=== PATIENT | male | born 1970 | race Two or more races ===

== ENCOUNTER 2024-03-19 09:58 | Outpatient (AMB) | payer MEDICARE, SELFPAY ==
--- NOTE | 2024-03-19 10:12 | A.OFFPC_ITS ---
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 ?? Prior PCP:? Family Medicine in [place] on [facility] Last office visit/CPE:? Close to a year Acute issue(s):? Stomach problems and has had colonoscopy <5 yrs ago at [facility] - inflammation in stomach. Also constipation & Hemorrhoids ?? PMHx:? Gastritis. Depression. Hep C - treated. L Eye injury and decreased vision SurgHx:? L knee surgery, Vasectomy FHx:? Mom: CAD, HTN. Dad: Lung Cancer. Aunt: DM SocHx: Quit cigs 2 yrs ago. EtOH: None. No drugs HPI Comments History of Present Illness Details Documentation assistance for Bimal Easton MD, was provided by Palmer Rai,? Offset Printing Operator on 03/19/2024 at 10:43 AM ALF. Fernando, Dr. Easton, have read, observed, and verified documentation. [facility] Medical History (Updated 03/19/24 @ 10:57 by Palmer Rai) History of hepatitis C Schizophrenia Bipolar 1 disorder Depression Anxiety Headache Acid reflux Back disorder Arthritis Family History (Updated 03/19/24 @ 10:29 by Len Gomez) Mother High blood pressure Father Cancer Social History (Updated 03/19/24 @ 10:18 by Len Gomez) Housing: Apartment Patient Tobacco Use Status: Former Tobacco user e-Cigarette/Vaping Use: Never Used Use of substances other than those prescribed or required for medical reasons: No service: No Current occupational status: unemployed Current occupational exposures/hazards: No Cognitive needs: No Hearing needs: No Vision needs: Yes Questionnaire PHQ-9 Over the last 2 weeks, how often have you been bothered by any of the following problems? 1. Little interest or pleasure in doing things: several days 2. Feeling down, depressed, or hopeless: several days 3. Trouble falling or staying asleep, or sleeping too much: several days 4. Feeling tired or having little energy: several days 5. Poor appetite or overeating: several days 6. Feeling bad about yourself - or that you are a failure or have let yourself or your family down: several days 7. Trouble concentrating on things, such as reading the newspaper or watching television: nearly every day 8. Moving or speaking so slowly that other people could have noticed. Or the opposite - being so fidgety or restless that you have been moving around a lot more than usual: several days 9. Thoughts that you would be better off or of hurting yourself in some way: not at all Total score: 10 Depression Screening Interpretation: Positive Depression Screening Done: Yes 35247 - PHQ-9 Billing: Yes Source: Developed by Drs. Rigo Smith, Ceci Arechiga, Gurvinder Dawson and colleagues, with an educational agustin from [employer]. Thrive Questionnaire Date Thrive assessed: 03/19/24 I am a: Patient What is your living situation today?: I have a place to live, but I am worried about losing it in the future Within the past 12 months, did the food you bought not last and you didn't have the money to get more?: Sometimes True Within the past 12 months, did you worry whether your food would run out before you got money to buy more?: Sometimes True Do you have trouble paying for medicines?: No Do you have trouble getting transportation to medical appointments?: No Do you have trouble paying your heating and electricity bill?: No Do you have trouble taking care of your child, family member or friend?: No Do you have trouble with day-to-day activities such as bathing, preparing meals, shopping, managing finances, etc.?: Yes Are you currently unemployed and looking for a job?: No Are you interested in more education?: No Please select the resources that you would like help with: None Currently or been in a relationship where the following occur: No concerns r eported THRIVE Score: 3 AUDIT C Alcohol Use Questionnaire (AUDIT-C) 1. How often do you have a drink containing alcohol?: Never 3. How often do you have six or more drinks on one occasion?: Never Total Score: 0 Score Reviewed/Action Taken: Yes ERIKA-7 AMB Questionnaire ERIKA-7 Date ERIKA - 7 assessed: 03/19/24 Feeling nervous, anxious, or on edge: 1 = Several days Not being able to stop or control worryin = Several days Worrying too much about different things: 1 = Several days Trouble relaxin = Nearly every day Being so restless that it is hard to sit still: 1 = Several days Becoming easily annoyed or irritable: 3 = Nearly every day Feeling afraid as if something awful might happen: 1 = Several days Total ERIKA-7 score (0-4 normal; 5-9 mild; 10-14 moderate; 15-21 severe): 11 Source: Developed by Drs. Rigo Smith, Ceci Arechiga, Gurvinder Dawson and colleagues, with an educational agustin from [employer]. ERIKA-7 Assessment Billing ERIKA-7 Assessment Tool: ERIKA-7 Assessment 69397 Review of Systems Const Denies chills, Denies fatigue, Denies fever(s), Denies headache(s) and Denies weakness ENT Denies dizziness and Denies headache(s) Card Denies chest pain, Denies lightheadedness, Denies dyspnea and Denies other (Palpitations) Resp Denies cough, Denies dyspnea, Denies wheezing and Denies other ( shortness of breath) GI Reports constipation Musc Denies numbness and Denies tingling Neuro Denies dizziness, Denies headache(s), Denies numbness, Denies tingling, Denies paresthesias and Denies weakness Psych Reports anxiety and Reports depression Endo Denies fatigue Aller/Immun Denies wheezing Physical exam (Primary Care) Vital Signs: Last Vital Signs Temp 97.6 F 03/19/24 10:20 Pulse 58 03/19/24 10:20 Resp 18 03/19/24 10:20 BP 110/70 03/19/24 10:20 Pulse Ox 96 03/19/24 10:20 Oxygen Delivery Method Room Air 03/19/24 10:20 BMI result Body Mass Index 37.3 Tobacco/Smoking Status: Tobacco use Status Tobacco use date assessed 03/19/24 03/19/24 10:24 Patient Tobacco Use Status Former Tobacco user 03/19/24 10:24 e-Cigarette/Vaping Use Never Used 03/19/24 10:24 PHQ-9: PHQ-9 Score PHQ-9: Total score 10 03/19/24 10:32 Depression Screening Interpretation: Positive Thrive Assessment: Date of Thrive Assessment Date Thrive assessed 03/19/24 03/19/24 10:24 Currently or been in a relationship where the following occur: No concerns reported Const General: no acute distress and well developed Nutritional Appearance: obese Orientation/consciousness: patient oriented x3 HENMT Head: Yes normocephalic and Yes atraumatic Eyes General: appearance normal, both eyes and all related structures Pupils: Equal, round and reactive pupils present EOM: EOMs intact bilaterally Resp Effort & Inspection: normal respiratory effort Auscultation: clear to auscultation bilaterally Cardio Rate: regular rate Rhythm: regular rhythm Heart sounds: S1 normal heart sound present, S2 normal heart sound present, no gallops, no murmurs and no rubs Neuro General: patient oriented x3 and gait normal Cranial nerves: Yes Equal, round and reactive pupils present Psych Affect: normal affect Assessment and Plan Assessment & Plan (1) Gastritis: Code(s): K29.70 - Gastritis, unspecified, without bleeding Plan: Patient?has?likely?gastritis?and?I?am?concerned?he?may?also?have?a?peptic?ulcer. Will?start?him?on?omeprazole?and?also?a?short?course?of?famotidine?at?bedtime Referring?him?julisa k?to?gastroenterology?at[facility]were?he?has?been?seen?before. Will?also?check?H?pylori?stool?antigen Advised?he?avoid?trigger?foods (2) Constipation: Code(s): K59.00 - Constipation, unspecified Plan: Increase?hydration (3) Depression with anxiety: Code(s): F41.8 - Other specified anxiety disorders Plan: Will?follow?at?next?visit. (4) Hemorrhoids: Code(s): K64.9 - Unspecified hemorrhoids Plan: As?above?keep?stools?soft-increase?hydration (5) Decreased vision of left eye: Code(s): H54.62 - Unqualified visual loss, left eye, normal vision right eye Plan: Patient?has?seen?registered nurse step down?in?the?past. Can?make?new?appointment?for?himself?if?needed. (6) Laboratory exam ordered as part of routine general medical examination: Code(s): Z00.00 - Encounter for general adult medical examination without abnormal findings Plan: Check?lab Orders: Orders Comprehensive [place]. Panel Fast Today Z00.00 - Encounter for general adult medi marleen examination without abnormal findings Microalbumin, Random (w Creat) Today I10 - Essential (primary) hypertension UA and rflx microscopic Today Z00.00 - Encounter for general adult medical examination without abnormal findings Lipid Panel Today Z00.00 - Encounter for general adult medical examination without abnormal findings Prostate Specific Antigen Scr Today Z12.5 - Encounter for screening for malignant neoplasm of prostate TSH reflex Free T4 Today Z00.00 - Encounter for general adult medical examination without abnormal findings Medications: New omeprazole 20 mg PO DAILY 30 days 30 caps 3RF famotidine 20 mg PO DAILY 14 days 14 tabs 0RF Coding Level of Care Code New Pt Level 3 (09079) Diagnoses Gastritis K29.70 Constipation K59.00 Depression with anxiety F41.8 Hemorrhoids K64.9 Decreased vision of left eye H54.62 Laboratory exam ordered as part of routine general medical examination Z00.00 Additional Codes ERIKA-7 Assessment Billing - ERIKA-7 Assessment Tool: ERIKA-7 Assessment 95280 ([id number])
[2024-03-19 10:20] VITALS: BP 110/70; PULSE 58; RESP 18; TEMP 36.4; O2SAT 96; BMI 37.3
== END 2024-03-19 11:04 | disposition home or self-care (01) ==
PROVIDERS: PCP Family Medicine; Visit Provider Family Medicine
DX: K29.70 Gastritis, unspecified, without bleeding (principal); K59.00 Constipation, unspecified; F41.8 Other specified anxiety disorders; K64.9 Unspecified hemorrhoids; H54.62 Unqualified visual loss, left eye, normal vision right eye
CPT/HCPCS: 99203

== ENCOUNTER 2024-03-24 07:34 | Outpatient (REF) | payer MEDICARE, SELFPAY ==
[2024-03-24 10:00] LABS: Appearance Urine Turbid; Color Urine Yellow; Glucose Urine UA Negative (Negative); Leukocyte Esterase Urine Trace (Negative); Nitrite Urine Negative (Negative); PH 5.5 (5.0-9.0); Specific Gravity - Urine 1.025 (1.005-1.025); UMIC TRIGGER UA YES; Urine Blood Negative (Negative); Urine Ketones Trace mg/dL (Negative); Urine Protein Negative (Neg-Trace)
[2024-03-24 10:03] LABS: Bacteria Urine None Seen (None Seen); Hyaline Casts Urine 0-2 /LPF (0-2); RBC Urine 0-2 /HPF (0-2); Squamous Epithelial Cell Urine 0-2 /HPF (0-2); WBC Urine 0-5 /HPF (0-5)
[2024-03-24 10:39] LABS: Alanine Aminotransferase 14 U/L (0-40); Albumin Level 4.4 g/dL (3.5-5.0); Alkaline Phosphatase 57 U/L (39-117); Anion Gap 11 (12-20); Aspartate Amino Transferase 18 U/L (5-37); Bilirubin Total 0.6 mg/dL (0.0-1.0); Blood Urea Nitrogen 13 mg/dL (9-16); Calcium 9.4 mg/dL (8.4-10.2); Carbon Dioxide 26 mmol/L (22-29); Chloride 107 mmol/L (96-108); Cholesterol 184 mg/dL (<200); Estimated Glomerular Filt Rate > 60; Glucose Fasting 108 mg/dL (60-99); HDL Cholesterol 31 mg/dL (>40); LDL Cholesterol Calculated 114 mg/dL (<100); Potassium 3.9 mmol/L (3.3-5.1); Sodium 140 mmol/L (135-145); Total Protein 7.4 g/dL (6.5-8.0); Triglycerides 195 mg/dL (<150)
[2024-03-24 10:53] LABS: HBS Num1 0.75 mIU/mL (0-7.99); HBsAGNum1 0.31 S/CO (0.00-0.99); Hepatitis B Core Antibody Nonreactive (Nonreactive); Hepatitis B Surface Antigen Negative (Negative); ~HepC Num1 15.41 S/CO (0.00-0.79); ~Hepatitis B Surface Antibody NONREACTIVE (Nonreactive); ~Hepatitis C Antibody Reactive (Nonreactive)
[2024-03-24 10:54] LABS: TSH reflex Free T4 3.28 uIU/mL (0.32-4.0)
[2024-03-24 11:43] LABS: Microalbum/Creatinine Ratio Ur 3.5 ug/mg cr (<30)
[2024-03-24 11:53] LABS: Prostate Specific Antigen Scr 0.88 ng/mL (<0.05-4.0)
== END 2024-03-24 07:35 | disposition home or self-care (01) ==
LOC: HO.WFDLDS 07:34
PROVIDERS: Visit Provider Family Medicine
DX: Z00.00 Encounter for general adult medical examination without abnormal findings (principal); Z12.5 Encounter for screening for malignant neoplasm of prostate; Z11.3 Encounter for screening for infections with a predominantly sexual mode of transmission; I10 Essential (primary) hypertension; K29.70 Gastritis, unspecified, without bleeding
CPT/HCPCS: 36415; 80053; 80061; 81001; 81003; 82043; 82570; 84153; 84443; 86704; 86706; 86803; 87338; 87340

== ENCOUNTER 2024-07-27 12:00 | Outpatient (AMB) | payer MEDICARE, SELFPAY ==
--- NOTE | 2024-07-27 12:03 | MHC.PC.OV ---
Vital Signs 07/27/24 12:07 Height 5 ft 8 in Weight 243 lb BMI 36.9 BP 120/80 Blood Pressure Location Lt brachial Position Sitting Respiration 16 Pulse 74 Pulse Source Pulse Oximeter Temp 97.8 F Temp Source Oral Pulse Oximetry (%) 97 Oxygen Delivery Method Room Air Intake Visit Reasons: MIGRAINE REFERRAL Intake Note: pt would like to be evaluated for migraines pt has been having headaches consistently for the past 2 months Allergies No Known Allergies Allergy (Verified 07/27/24 12:05) Tobacco use date assessed: 03/19/24 Dental Screening Dental Screen Date: 03/19/24 HPI MIGRAINE REFERRAL HPI Details 53 y/o male presents today with complaints of a migraine. Reports chronic headaches and has taken tylenol before in the past. [facility] Medical History (Updated 07/27/24 @ 12:27 by Bimal Easton MD) History of hepatitis C Schizophrenia Bipolar 1 disorder Depression Anxiety Headache Acid reflux Back disorder Arthritis Family History (Updated 03/19/24 @ 10:29 by GABRIEL Lincoln) Mother High blood pressure Father Cancer Social History (Updated 03/19/24 @ 10:18 by GABRIEL Lincoln) Housing: Apartment Patient Tobacco Use Status: Former Tobacco user e-Cigarette/Vaping Use: Never Used service: No Current occupational status: unemployed Current occupational exposures/hazards: No Cognitive needs: No Hearing needs: No Vision needs: Yes Questionnaire PHQ-9 Over the last 2 weeks, how often have you been bothered by any of the following problems? 1. Little interest or pleasure in doing things: more than half the days 2. Feeling down, depressed, or hopeless: nearly every day 3. Trouble falling or staying asleep, or sleeping too much: nearly every day 4. Feeling tired or having little energy: more than half the days 5. Poor appetite or overeating: several days 6. Feeling bad about yourself - or that you are a failure or have let yourself or your family down: several days 7. Trouble concentrating on things, such as reading the newspaper or watching television: more than half the days 8. Moving or speaking so slowly that other people could have noticed. Or the opposite - being so fidgety or restless that you have been moving around a lot more than usual: several days 9. Thoughts that you would be better off or of hurting yourself in some way: not at all Total score: 15 Source: Developed by Drs. Rigo Smith, Ceci Arechiga, Gurvinder Dawson and colleagues, with an educational agustin from [employer]. Thrive Questionnaire Date Thrive assessed: 03/19/24 I am a: Patient What is your living situation today?: I have a steady place to live Within the past 12 months, did the food you bought not last and you didn't have the money to get more?: Often true Within the past 12 months, did you worry whether your food would run out before you got money to buy more?: Often true Do you have trouble paying for medicines?: I choose not to answer this question Do you have trouble getting transportation to medical appointments?: No Do you have trouble paying your heating and electricity bill?: I choose not to answer this question Do you have trouble taking care of your child, family member or friend?: I choose not to answer this question Do you have trouble with day-to-day activities such as bathing, preparing meals, shopping, managing finances, etc.?: Yes Are you currently unemployed and looking for a job?: I choose not to answer this question Are you interested in more education?: I choose not to answer this question Please select the resources that you would like help with: Food Currently or been in a relationship where the following occur: No concerns reported THRIVE Score: 2 AUDIT C Alcohol Use Questionnaire (AUDIT-C) 1. How often do you have a drink containing alcohol?: Never Total Score: 0 ERIKA-7 AMB Questionnaire ERIKA-7 Date ERIKA - 7 assessed: 03/19/24 Feeling nervous, anxious, or on edge: 2 = More than half the days Not being able to stop or control worryin = More than half the days Worrying too much about different things: 2 = More than half the days Trouble relaxin = More than half the days Being so restless that it is hard to sit still: 2 = More than half the days Becoming easily annoyed or irritable: 1 = Several days Feeling afraid as if something awful might happen: 1 = Several days Total ERIKA-7 score (0-4 normal; 5-9 mild; 10-14 moderate; 15-21 severe): 12 Source: Developed by Drs. Rigo Smith, Ceci Arechiga, Gurvinder Dawson and colleagues, with an educational agustin from [employer]. Review of Systems Const Denies fatigue and Reports headache(s) ENT Reports headache(s) Card Denies dyspnea Resp Denies cough, Denies dyspnea, Denies wheezing and Denies other (shortness of breath) Musc Denies numbness and Denies tingling Neuro Reports headache(s), Denies numbness and Denies tingling Psych Denies anxiety and Denies depression Endo Denies fatigue Aller/Immun Denies wheezing Physical exam (Primary Care) Vital Signs: Last Vital Signs Temp 97.8 F 07/27/24 12:07 Pulse 74 07/27/24 12:07 Resp 16 07/27/24 12:07 BP 120/80 07/27/24 12:07 Pulse Ox 97 07/27/24 12:07 Oxygen Delivery Method Room Air 07/27/24 12:07 BMI result Body Mass Index 36.9 Tobacco/Smoking Status: Tobacco use Status Tobacco use date assessed 03/19/24 07/27/24 12:10 Patient Tobacco Use Status Former Tobacco user 07/27/24 12:10 e-Cigarette/Vaping Use Never Used 07/27/24 12:10 PHQ-9: PHQ-9 Score PHQ-9: Total score 15 07/27/24 12:13 Thrive Assessment: Date of Thrive Assessment Date Thrive assessed 03/19/24 07/27/24 12:10 Currently or been in a relationship where the following occur: No concerns reported Const General: well developed; No acute distress Nutritional Appearance: well nourished Orientation/consciousness: patient oriented x3 [facility] Head: Yes normocephalic and Yes atraumatic Eyes General: appearance normal, both eyes and all related structures Pupils: Equal, round and reactive pupils present EOM: EOMs intact bilaterally Resp Effort & Inspection: normal respiratory effort Neuro General: patient oriented x3 and gait normal Cranial nerves: Yes Equal, round and reactive pupils present Psych Affect: normal affect Coding Level of Care Code Est Pt Level 3 (15373) Diagnoses Migraine G43.909 Headache R51.9 Assessment & Plan Assessment & Plan (1) Migraine: Code(s): G43.909 - Migraine, unspecified, not intractable, without status migrainosus Category: Medical (2) Headache: Code(s): R51.9 - Headache, unspecified Category: Medical Plan Intractable?migraine Neuro?exam?within?limits Hydrate?well?and?try?Imitrex Will?refer?to?Neurology Will?follow-up?in?a?month?sure?has?an?appointment?and?follow-up?labs.??Will?see?how?medication?is?working?and?he?may?need?a?medication?prevention?well?abortive?medication?I?am?sending?today. Orders: Orders Erythrocyte Sedimentation Rate Today R51.9 - Headache, unspecified CRP High Sensitivity Today R51.9 - Headache, unspecified Complete Blood Count Auto Diff Today R51.9 - Headache, unspecified, Z00.00 - Encounter for general adult medical examination without abnormal findings Comprehensive Met. Panel Today R51.9 - Headache, unspecified Hepatitis C Viral Load Today Z86.19 - Personal history of other infectious and parasitic diseases Referrals Neurology Referral G43.909 - Migraine, unspecified, not intractable, without status migrainosus Medications: New sumatriptan succinate take 1 tab at onset of headache; if no relief may repeat 1 tab after at least 2 hrs; max = 4 tabs/24 hr orally PRN; 30 days 12 tabs 1RF migraine headache
[2024-07-27 12:07] VITALS: BP 120/80; PULSE 74; RESP 16; TEMP 36.6; O2SAT 97; BMI 36.9
== END 2024-07-27 12:28 | disposition home or self-care (01) ==
PROVIDERS: PCP Family Medicine; Visit Provider Family Medicine
DX: G43.909 Migraine, unspecified, not intractable, without status migrainosus (principal); R51.9 Headache, unspecified

== ENCOUNTER → 2024-07-27 12:00 | Outpatient (BNVA) | payer MEDICARE, SELFPAY | PROVIDERS: PCP Family Medicine; Visit Provider Family Medicine | DX: G43.909 Migraine, unspecified, not intractable, without status migrainosus (principal); Z86.19 Personal history of other infectious and parasitic diseases | CPT/HCPCS: 96127; 99212 ==

== ENCOUNTER 2024-07-27 12:34 | Outpatient (REF) | payer MEDICARE, SELFPAY ==
[2024-07-27 14:22] LABS: MANUAL DIFF FLAG NO
[2024-07-27 14:46] LABS: Basophils Percent Auto 0.6 % (0-2); Eosinophils Absolute Auto 0.1 X10*3/uL (0.0-0.4); Eosinophils Percent Auto 0.8 % (0-4); Hematocrit 47.7 % (42.0-52.0); Hemoglobin 15.9 g/dl (14.0-18.0); Imm Gran Abs Auto 0.02 X10*3/uL (0.00-0.03); Imm Gran Pct Auto 0.3 % (0.0-0.4); Lymphocytes Absolute Auto 1.2 X10*3/uL (1.2-4.9); Lymphocytes Percent Auto 18.3 % (20-40); Mean Corpuscular HGB Conc 33.3 g/dl (31.0-36.0); Mean Corpuscular Hemoglobin 28.2 pg (27.0-33.0); Mean Corpuscular Volume 84.7 fL (80.0-98.0); Mean Platelet Volume 10.8 fL (9.4-12.4); Monocytes Absolute Auto 0.3 X10*3/uL (0.1-1.2); Monocytes Percent Auto 5.3 % (2-11); Neutrophils Absolute Auto 4.8 x10*3/uL (2.0-8.3); Neutrophils Percent Auto 74.7 % (45-73); Platelet Count 189 X10*3/uL (160-400); Red Blood Count 5.63 X10*6/uL (4.60-5.80); Red Cell Distribution Width 14.6 % (11.0-16.0); White Blood Count 6.5 X10*3/uL (4.8-10.8)
[2024-07-27 15:25] LABS: Erythrocyte Sedimentation Rate 5 MM/HR (0-15)
[2024-07-27 15:26] LABS: Alanine Aminotransferase 19 U/L (0-40); Albumin Level 4.6 g/dL (3.5-5.0); Anion Gap 12 (12-20); Aspartate Amino Transferase 23 U/L (5-37); Bilirubin Total 0.4 mg/dL (0.0-1.0); Blood Urea Nitrogen 13 mg/dL (9-16); Calcium 9.4 mg/dL (8.4-10.2); Carbon Dioxide 23 mmol/L (22-29); Chloride 108 mmol/L (96-108); Estimated Glomerular Filt Rate > 60; Glucose Random 99 mg/dL (60-115); Potassium 4.4 mmol/L (3.3-5.1); Sodium 139 mmol/L (135-145); Total Protein 7.7 g/dL (6.5-8.0)
[2024-07-27 15:59] LABS: Alkaline Phosphatase 54 U/L (39-117)
[2024-07-29 11:47] LABS: CRP High Sensitivity 9.6 mg/L
[2024-07-29 17:59] LABS: HCV Log PCR <1.18 NOT DETECTED Log IU/mL (NOT DETECTED); HepC Viral Load <15 NOT DETECTED IU/mL (NOT DETECTED)
== END 2024-07-27 12:35 | disposition home or self-care (01) ==
LOC: HO.WFDLDS 12:34
PROVIDERS: Visit Provider Family Medicine
DX: Z00.00 Encounter for general adult medical examination without abnormal findings (principal); Z86.19 Personal history of other infectious and parasitic diseases; G43.909 Migraine, unspecified, not intractable, without status migrainosus
CPT/HCPCS: 36415; 80053; 84443; 85025; 85652; 86141; 87522

== ENCOUNTER 2024-08-03 12:31 | Outpatient (AMB) | payer MEDICARE, SELFPAY ==
[2024-08-03 12:52] VITALS: BMI 36.9
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
== END 2024-08-03 13:31 | disposition home or self-care (01) ==
PROVIDERS: PCP Family Medicine; Visit Provider Psychiatry & Neurology Neurology
DX: G43.E19 Chronic migraine with aura, intractable, without status migrainosus (principal); M54.2 Cervicalgia; R06.83 Snoring; G47.10 Hypersomnia, unspecified
CPT/HCPCS: 99204; G2211

== ENCOUNTER → 2024-08-03 12:31 | Outpatient (BNVA) | payer MEDICARE, SELFPAY | PROVIDERS: PCP Family Medicine; Visit Provider Psychiatry & Neurology Neurology | DX: G43.E19 Chronic migraine with aura, intractable, without status migrainosus (principal); G47.10 Hypersomnia, unspecified; M54.2 Cervicalgia; R06.83 Snoring | CPT/HCPCS: 99202 ==

== ENCOUNTER 2024-09-06 14:37 | Outpatient (AMB) | payer MEDICARE, SELFPAY ==
--- NOTE | 2024-09-06 14:44 | MHC.PC.OV ---
Vital Signs 09/06/24 14:45 Height 5 ft 8 in Weight 247 lb BMI 37.6 BP 116/72 Blood Pressure Location Rt brachial Position Sitting Pulse 77 Pulse Source Pulse Oximeter Pulse Oximetry (%) 95 Oxygen Delivery Method Room Air Intake Visit Reasons: f/u chronic headaches Intake Note: Follow up headaches. Developmental Writing Instructor Required: No Allergies No Known Allergies Allergy (Verified 09/06/24 14:45) Tobacco use date assessed: 03/19/24 Dental Screening Dental Screen Date: 03/19/24 HPI f/u chronic headaches HPI Details 53 y/o male presents to f/u intractable migraines. Had given pt Imitrex to try to abort headaches. Had seenNeurology 08/03/24. Trialing him oncyclobenzaprine and recommended PT for his neck. He notes imitrex has been helping with his headaches. Reports L knee pain. [facility] Medical History (Updated 09/06/24 @ 15:22 by Palmer Rai) Cervicalgia Chronic migraine with aura Headache around the eyes Hypersomnia Snoring Cervicalgia History of hepatitis C Schizophrenia Bipolar 1 disorder Depression Anxiety Headache Acid reflux Back disorder Arthritis Family History Mother High blood pressure Father Cancer Social History Housing: Apartment Patient Tobacco Use Status: Former Tobacco user e-Cigarette/Vaping Use: Never Used service: No Current occupational status: unemployed Current occupational exposures/hazards: No Cognitive needs: No Hearing needs: No Vision needs: Yes Questionnaire PHQ-9 Over the last 2 weeks, how often have you been bothered by any of the following problems? 1. Little interest or pleasure in doing things: several days 2. Feeling down, depressed, or hopeless: several days 3. Trouble falling or staying asleep, or sleeping too much: several days 4. Feeling tired or having little energy: several days 5. Poor appetite or overeating: several days 6. Feeling bad about yourself - or that you are a failure or have let yourself or your family down: not at all 7. Trouble concentrating on things, such as reading the newspaper or watching television: several days 8. Moving or speaking so slowly that other people could have noticed. Or the opposite - being so fidgety or restless that you have been moving around a lot more than usual: several days 9. Thoughts that you would be better off or of hurting yourself in some way: not at all Total score: 7 Source: Developed by Drs. Rigo Smith, Ceci Arechiga, Gurvinder Dawson and colleagues, with an educational agustin from [employer]. Thrive Questionnaire Date Thrive assessed: 07/27/24 I am a: Patient What is your living situation today?: I choose not to answer this question Within the past 12 months, did the food you bought not last and you didn't have the money to get more?: I choose not to answer this question Within the past 12 months, did you worry whether your food would run out before you got money to buy more?: I choose not to answer this question Do you have trouble paying for medicines?: I choose not to answer this question Do you have trouble getting transportation to medical appointments?: I choose not to answer this question Do you have trouble paying your heating and electricity bill?: I choose not to answer this question Do you have trouble taking care of your child, family member or friend?: I choose not to answer this question Do you have trouble with day-to-day activities such as bathing, preparing meals, shopping, managing finances, etc.?: I choose not to answer this question Are you currently unemployed and looking for a job?: I choose not to answer this question Are you interested in more education?: I choose not to answer this question Please select the resources that you would like help with: Housing/Residential Currently or been in a relationship where the following occur: I choose not to answer THRIVE Score: 0 AUDIT C Alcohol Use Questionnaire (AUDIT-C) 1. How often do you have a drink containing alcohol?: Never Total Score: 0 ERIKA-7 AMB Questionnaire ERIKA-7 Date ERIKA - 7 assessed: 03/19/24 Feeling nervous, anxious, or on edge: 2 = More than half the days Not being able to stop or control worryin = Several days Worrying too much about different things: 1 = Several days Trouble relaxin = Several days Being so restless that it is hard to sit still: 1 = Several days Becoming easily annoyed or irritable: 1 = Several days Feeling afraid as if something awful might happen: 1 = Several days Total ERIKA-7 score (0-4 normal; 5-9 mild; 10-14 moderate; 15-21 severe): 8 Source: Developed by Drs. Rigo Smith, Ceci Arechiga, Gurvinder Dawson and colleagues, with an educational agustin from [employer]. Review of Systems Const Denies chills, Denies fatigue, Denies fever(s), Denies headache(s) and Denies weakness ENT Denies dizziness and Denies headache(s) Card Denies dyspnea Resp Denies cough, Denies dyspnea, Denies wheezing and Denies other (shortness of breath) Musc Denies numbness and Denies tingling Neuro Denies dizziness, Denies headache(s), Denies numbness, Denies tingling and Denies weakness Psych Denies anxiety and Denies depression Endo Denies fatigue Aller/Immun Denies wheezing Physical exam (Primary Care) Vital Signs: Last Vital Signs Pulse 77 09/06/24 14:45 BP 116/72 09/06/24 14:45 Pulse Ox 95 09/06/24 14:45 Oxygen Delivery Method Room Air 09/06/24 14:45 BMI result Body Mass Index 37.6 Tobacco/Smoking Status: Tobacco use Status Tobacco use date assessed 03/19/24 09/06/24 14:46 Patient Tobacco Use Status Former Tobacco user 09/06/24 14:46 e-Cigarette/Vaping Use Never Used 09/06/24 14:46 PHQ-9: PHQ-9 Score PHQ-9: Total score 7 09/06/24 15:14 Thrive Assessment: Date of Thrive Assessment Date Thrive assessed 07/27/24 09/06/24 14:46 Currently or been in a relationship where the following occur: I choose not to answer Const General: well developed; No acute distress Nutritional Appearance: well nourished Orientation/consciousness: patient oriented x3 HENMT Head: Yes normocephalic and Yes atraumatic Eyes General: appearance normal, both eyes and all related structures Pupils: Equal, round and reactive pupils present EOM: EOMs intact bilaterally Resp Effort & Inspection: normal respiratory effort Neuro General: patient oriented x3 and gait normal Cranial nerves: Yes Equal, round and reactive pupils present Psych Affect: normal affect Coding Level of Care Code Est Pt Level 4 (04466) Diagnoses Intractable chronic migraine with aura and without status migrainosus G43.E19 Intractability: intractable Status migrainosus presence: without status migrainosus Cervicalgia M54.2 Left knee pain M25.562 Assessment & Plan Assessment & Plan (1) Chronic migraine with aura: Comment: paola triggered by neck tightness Code(s): G43.E09 - Chronic migraine with aura, not intractable, without status migrainosus Category: Medical Qualifiers: Intractability: intractable Status migrainosus presence: without status migrainosus Qualified Code(s): G43.E19 - Chronic migraine with aura, intractable, without status migrainosus Plan: Chronic?migraines Sumatriptan?did?help. Also?has?an?appointment?with?sleep?medicine?and?will?be?starting?physical?therapy?soon. Was?given?cyclobenzaprine?and?noted?that?it?was?making?him?still?feel?drowsy?in?the?morning.??He?has?been?taking?the?medication?around?11?and?I?told?him?take?it?at?8?or?9PM.??Can?also?read?this?half?if?still?making?feel?drowsy. Follow-up?with?Neurology?as?recommended (2) Cervicalgia: Code(s): M54.2 - Cervicalgia Category: Medical Plan: As?above Start?physical?therapy?and?try?cyclobenzaprine (3) Left knee pain: Code(s): M25.562 - Pain in left knee Category: Medical Plan: Left?knee?pain?and?history?of?internal?derangement?with?surgery. Can?use?topicals?and?ice/heat Use?cane?if?needed Will?renew?his?he?get?placard.? He?will?get?his?paperwork Medications: Refilled cyclobenzaprine 10 mg PO BEDTIME 30 tabs 1RF sumatriptan succinate take 1 tab at onset of headache; if no relief may repeat 1 tab after at least 2 hrs; max = 4 tabs/24 hr orally PRN; 9 tabs 2RF migraine headache 30 days
[2024-09-06 14:45] VITALS: BP 116/72; PULSE 77; O2SAT 95; BMI 37.6
== END 2024-09-06 16:45 | disposition home or self-care (01) ==
PROVIDERS: PCP Family Medicine; Visit Provider Family Medicine
DX: G43.E19 Chronic migraine with aura, intractable, without status migrainosus (principal); M54.2 Cervicalgia; M25.562 Pain in left knee

== ENCOUNTER → 2024-09-06 14:37 | Outpatient (BNVA) | payer MEDICARE, MEDICAID, SELFPAY | PROVIDERS: PCP Family Medicine; Visit Provider Family Medicine | DX: G43.E19 Chronic migraine with aura, intractable, without status migrainosus (principal); M54.2 Cervicalgia; M25.562 Pain in left knee | CPT/HCPCS: 99212 ==

== ENCOUNTER 2024-09-20 13:48 | Outpatient (AMB) | payer MEDICARE, MEDICAID, SELFPAY ==
--- NOTE | 2024-09-20 13:56 | A.OFFPC_ITS ---
Vital Signs 09/20/24 14:02 Height 5 ft 8 in Weight 247 lb BMI 37.6 BP 130/60 Blood Pressure Location Rt brachial Position Sitting Respiration 14 Pulse 70 Pulse Source Pulse Oximeter Temp 98.1 F Temp Source Oral Pulse Oximetry (%) 96 Oxygen Delivery Method Room Air Intake Visit Reasons: cpe Intake Note: cpe Allergies No Known Allergies Allergy (Verified 09/20/24 13:58) Medication List - Last Reconciled 09/23/24 by Raisa Sierra MD celecoxib (Celebrex) 200 mg PO BID PRN cyclobenzaprine 10 mg PO BEDTIME omeprazole 20 mg PO DAILY 30 days sumatriptan succinate take 1 tab at onset of headache; if no relief may repeat 1 tab after at least 2 hrs; max = 4 tabs/24 hr orally PRN; 30 days Tobacco use date assessed: 09/20/24 Dental Screening Dental Screen Date: 09/20/24 Did you have a dental visit in the last 12 months?: Yes Did you have a dental problem in the last 6 months where you did not have access to dental care?: No Was dental information given to patient?: No HPI HPI Comments History of Present Illness Details 53 y/o male with past medical history of migraine, schizophrenia, depression, OA, presenting for physical exam Neurology: Saw end of July. He notes imitrex has been helping with his headaches. He has a sleep study ordered-says this is scheduled Reports L knee pain-seeing [facility]. Neck pain. On flexeril. Continues PT. CRP was elevated with last labs CV: Hyperlipidemia. elevated crp. no chest pain or dyspnea BH: Notes stable on current medications ROS see HPI PHYSICAL EXAM: GENERAL: Alert and oriented x 3. NAD EYES: EOMI. Anicteric. HENT: Moist mucous membranes. No scleral icterus. No cervical lymphadenopathy. LUNGS: Clear to auscultation bilaterally. CARDIOVASCULAR: Regular rate and rhythm. No murmur. No JVD. ABDOMEN: Soft, non-tender +bs EXTREMITIES: No edema. Non-tender. SKIN: No rashes or lesions. Warm. NEUROLOGIC: No focal neurological deficits. CN II-XII grossly intact PSYCHIATRIC: Cooperative. Appropriate mood and affect [facility] Medical History Cervicalgia Chronic migraine with aura Headache around the eyes Hypersomnia Snoring Cervicalgia History of hepatitis C Schizophrenia Bipolar 1 disorder Depression Anxiety Headache Acid reflux Back disorder Arthritis Family History Mother High blood pressure Father Cancer Social History Housing: Apartment Patient Tobacco Use Status: Former Tobacco user e-Cigarette/Vaping Use: Never Used service: No Current occupational status: unemployed Current occupational exposures/hazards: No Cognitive needs: No Hearing needs: No Vision needs: Yes Questionnaire PHQ-9 Over the last 2 weeks, how often have you been bothered by any of the following problems? 1. Little interest or pleasure in doing things: several days 2. Feeling down, depressed, or hopeless: several days 3. Trouble falling or staying asleep, or sleeping too much: several days 4. Feeling tired or having little energy: several days 5. Poor appetite or overeating: not at all 6. Feeling bad about yourself - or that you are a failure or have let yourself or your family down: several days 7. Trouble concentrating on things, such as reading the newspaper or watching television: several days 8. Moving or speaking so slowly that other people could have noticed. Or the opposite - being so fidgety or restless that you have been moving around a lot more than usual: several days 9. Thoughts that you would be better off or of hurting yourself in some way: not at all Total score: 7 Depression Screening Interpretation: Positive Depression Screening Follow-up: In treatment Depression Screening Done: Yes 75969 - PHQ-9 Billing: Yes Source: Developed by Drs. Rigo Smith, Ceci Arechiga, Gurvinder Dawson and colleagues, with an educational agustin from [employer]. Thrive Questionnaire Date Thrive assessed: 09/20/24 I am a: Patient What is your living situation today?: I choose not to answer this question Within the past 12 months, did the food you bought not last and you didn't have the money to get more?: I choose not to answer this question Within the past 12 months, did you worry whether your food would run out before you got money to buy more?: I choose not to answer this question Do you have trouble paying for medicines?: I choose not to answer this question Do you have trouble getting transportation to medical appointments?: I choose not to answer this question Do you have trouble paying your heating and electricity bill?: I choose not to answer this question Do you have trouble taking care of your child, family member or friend?: I choose not to answer this question Do you have trouble with day-to-day activities such as bathing, preparing meals, shopping, managing finances, etc.?: I choose not to answer this question Are you currently unemployed and looking for a job?: I choose not to answer this question Are you interested in more education?: I choose not to answer this question Please select the resources that you would like help with: Housing/Assisted Currently or been in a relationship where the following occur: I choose not to answer THRIVE Score: 0 ERIKA-7 AMB Questionnaire ERIKA-7 Date ERIKA - 7 assessed: 09/20/24 Feeling nervous, anxious, or on edge: 1 = Several days Not being able to stop or control worryin = Several days Worrying too much about different things: 1 = Several days Trouble relaxin = Several days Being so restless that it is hard to sit still: 1 = Several days Becoming easily annoyed or irritable: 1 = Several days Feeling afraid as if something awful might happen: 1 = Several days Total ERIKA-7 score (0-4 normal; 5-9 mild; 10-14 moderate; 15-21 severe): 7 Source: Developed by Drs. Rigo Smith, Ceci Arechiga, Gurvinder Dawson and colleagues, with an educational agustin from [employer]. ERIKA-7 Assessment Billing ERIKA-7 Assessment Tool: ERIKA-7 Assessment 09842 Physical exam (Primary Care) Vital Signs: Last Vital Signs Temp 98.1 F 09/20/24 14:02 Pulse 70 09/20/24 14:02 Resp 14 09/20/24 14:02 BP 130/60 09/20/24 14:02 Pulse Ox 96 09/20/24 14:02 Oxygen Delivery Method Room Air 09/20/24 14:02 BMI result Body Mass Index 37.6 Tobacco/Smoking Status: Tobacco use Status Tobacco use date assessed 09/20/24 09/20/24 14:05 Patient Tobacco Use Status Former Tobacco user 02/17/25 13:58 e-Cigarette/Vaping Use Never Used 09/20/24 13:58 PHQ-9: PHQ-9 Score PHQ-9: Total score 7 09/23/24 10:18 Depression Screening Interpretation: Positive Depression Screening Follow-up: In treatment Thrive Assessment: Date of Thrive Assessment Date Thrive assessed 09/20/24 09/20/24 14:05 Currently or been in a relationship where the following occur: [facility] Coding Level of Care Code Est Pt Prev Care 40-64y(23757) Diagnoses Physical exam Z00.00 Polyarthralgia M25.50 Additional Codes ERIKA-7 Assessment Billing - ERIKA-7 Assessment Tool: ERIKA-7 Assessment 04029 ([id number]) PHQ-9 - 58551 - PHQ-9 Billing: Yes ([id number]) Assessment & Plan Assessment & Plan (1) Physical exam: Code(s): Z00.00 - Encounter for general adult medical examination without abnormal findings Category: Medical Plan: 53 y/o for physical exam. Chronic medical conditions, interval history reviewed. Medications reconciled. Preventive measures for age discussed. (2) Polyarthralgia: Code(s): M25.50 - Pain in unspecified joint Category: Medical Plan: Labs ordered. Orders: Orders Rheumatoid Factor 09/20/24 M25.50 - Pain in unspecified joint Erythrocyte Sedimentation Rate 09/20/24 M25.50 - Pain in unspecified joint Lyme IgG/IgM w/reflex to WB 09/20/24 M25.50 - Pain in unspecified joint Referrals Pain Management Referral M54.2 - Cervicalgia, M54.6 - Pain in thoracic spine Medications: New celecoxib (Celebrex) 200 mg PO BID PRN 180 caps 3RF pain
[2024-09-20 14:02] VITALS: BP 130/60; PULSE 70; RESP 14; TEMP 36.7; O2SAT 96; BMI 37.6
== END 2024-09-20 14:44 | disposition home or self-care (01) ==
PROVIDERS: PCP Family Medicine; Visit Provider Internal Medicine
DX: Z00.00 Encounter for general adult medical examination without abnormal findings (principal); M25.50 Pain in unspecified joint

== ENCOUNTER → 2024-09-20 13:48 | Outpatient (BNVA) | payer MEDICARE, MEDICAID, SELFPAY | PROVIDERS: PCP Family Medicine; Visit Provider Internal Medicine | DX: Z00.00 Encounter for general adult medical examination without abnormal findings (principal); M25.50 Pain in unspecified joint; M54.2 Cervicalgia; M54.6 Pain in thoracic spine | CPT/HCPCS: 36415; 85652; 86431; 86618; 96127; 99396 ==

== ENCOUNTER 2024-09-20 14:51 | Outpatient (REF) | payer MEDICARE, MEDICAID, SELFPAY ==
[2024-09-20 17:25] LABS: Erythrocyte Sedimentation Rate 3 MM/HR (0-15)
[2024-09-20 17:48] LABS: Rheumatoid Factor < 13.0 IU/mL (<15.0)
[2024-09-21 09:03] LABS: Lyme Abs Screen <0.90 index
== END 2024-09-20 14:52 | disposition home or self-care (01) ==
LOC: HO.WFDLDS 14:51
PROVIDERS: Visit Provider Internal Medicine
DX: Z13.89 Encounter for screening for other disorder (principal)
CPT/HCPCS: 36415; 85652; 86431; 86617; 86618

== ENCOUNTER 2024-09-26 14:16 | Outpatient (REF) | payer MEDICARE, MEDICAID, SELFPAY | END 2024-09-26 14:17 | disposition home or self-care (01) | LOC: HO.MRI 14:16 | PROVIDERS: PCP Family Medicine; Visit Provider Psychiatry & Neurology Neurology | DX: Z13.89 Encounter for screening for other disorder (principal) ==

== ENCOUNTER → 2024-10-06 10:05 | Outpatient (REF) | payer MEDICARE, MEDICAID, SELFPAY | LOC: HO.SL 10:05 | PROVIDERS: PCP Family Medicine; Visit Provider Psychiatry & Neurology Neurology | DX: R06.83 Snoring (principal); G47.10 Hypersomnia, unspecified | CPT/HCPCS: 95806 ==

== ENCOUNTER → 2024-10-06 10:30 | Outpatient (BNV) | payer MEDICARE, MEDICAID, SELFPAY | PROVIDERS: PCP Family Medicine; Visit Provider Psychiatry & Neurology Neurology | DX: G47.33 Obstructive sleep apnea (adult) (pediatric) (principal) | CPT/HCPCS: 95806 ==

== ENCOUNTER 2024-10-08 14:49 | Outpatient (AMB) | payer MEDICARE, MEDICAID, SELFPAY ==
[2024-10-08 14:54] VITALS: BP 120/78; PULSE 73; O2SAT 95; BMI 36.6
--- NOTE | 2024-10-08 14:54 | A.OFFVIS_ITS ---
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 He is having migraines 5x a week around 5 pm, 6-7 severity. The headaches were pulsating pounding bitemporal pain L>R, radiating from occipital to temporal, with eye pressure , photophobia, phonophobia, nausea, vomiting , visual aura , some dizziness etc. The pain but lasts 2 hours but migraines abort with Sumatriptan 50mg PO. He drives with shades on and wants to know if he can tint the windows of his car. 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 He has cervicagia when rotating his head to the left > more than the right. He was unable to complete his MRI d/t claustrophobia. He is not a smoker, and drinks occasionally. [facility] Medical History Cervicalgia Chronic migraine with aura Headache around the eyes Hypersomnia Snoring Cervicalgia History of hepatitis C Schizophrenia Bipolar 1 disorder Depression Anxiety Headache Acid reflux Back disorder Arthritis Family History Mother High blood pressure Father Cancer Social History Housing: Apartment Patient Tobacco Use Status: Former Tobacco user e-Cigarette/Vaping Use: Never Used service: No Current occupational status: unemployed Current occupational exposures/hazards: No Cognitive needs: No Hearing needs: No Vision needs: Yes Physical Exam Vital Signs: Last Vital Signs Pulse 73 10/08/24 14:54 BP 120/78 10/08/24 14:54 Pulse Ox 95 10/08/24 14:54 Oxygen Delivery Method Room Air 10/08/24 14:54 BMI result Body Mass Index 36.6 Const General: cooperative and comfortable Nutritional Appearance: obese Orientation/consciousness: patient oriented x3 Eyes Pupils: Equal, round and reactive pupils present Neuro Other: mild head tremors severe restricted range of motion of neck with tightness and tenderness in lateral and posterior cervical muscles. General: patient oriented x3, gait normal, tone normal, moves all extremities and no focal motor deficits Cranial nerves: Yes Facial sensation intact/muscles of mastication intact, Yes Equal, round and reactive pupils present, Yes Bilaterally intact EOM present, Yes Nystagmus not present, Yes Normal facial strength present, Yes Midline tongue present, Yes Symmetric palate elevation present and Yes Ability to bilaterally elevate shoulders present Cognition (Neuro): normal cognition Gait exam (Neuro): Normal gait present Motor exam (neuro): 5/5 motor strength present throughout and Normal motor muscle tone present throughout Deep tendon reflexes (DTR's): Right triceps reflex intensity grade: 1+, Left triceps reflex intensity grade: 1+, Rt Biceps (C5, C6): 1+, Left biceps reflex intensity grade: 1+, Right brachioradialis reflex intensity grade: 1+, Left brachioradialis reflex intensity grade: 1+, Right patellar reflex intensity grade: 1+ and Left patellar reflex intensity grade: 1+ Coordination: [id number] test normal Results Reviewed Results Reviewed: MRI unable d/t claustrophobia, will order a head CT Assessment & Plan Assessment & Plan (1) Headache around the eyes: Code(s): R51.9 - Headache, unspecified Category: Medical (2) Migraine: Code(s): G43.909 - Migraine, unspecified, not intractable, without status migrainosus Category: Medical Qualifiers: Migraine type: unspecified Status migrainosus presence: without status migrainosus Intractability: intractable Qualified Code(s): G43.919 - Migraine, unspecified, intractable, without status migrainosus (3) Chronic migraine with aura: Comment: kushley triggered by neck tightness Code(s): G43.E09 - Chronic migraine with aura, not intractable, without status migrainosus Category: Medical Qualifiers: Status migrainosus presence: without status migrainosus Intractability: intractable Qualified Code(s): G43.E19 - Chronic migraine with aura, intractable, without status migrainosus (4) Cervicalgia: Code(s): M54.2 - Cervicalgia Category: Medical (5) Snoring: Code(s): R06.83 - Snoring Category: Medical (6) Hypersomnia: Code(s): G47.10 - Hypersomnia, unspecified Category: Medical Plan Continue sumatriptan 50mg as needed with onset of migraines, take one pill and if it doesn't go away take one more pill 2 hours later. Cervicalgia continue with cyclobenzaprine 5mg as needed at bedtime Start Topiramate 50mg PO at night daily for chronic migraines. Continue PT for neck - myofascial release MRI not able to tolerate due to claustrophobic will do a CT scan of the head. sleep study to r/o sleep apnea is still pending/ snoring - nose strips and mouth gaurd may be helpful Consider in future: Counseled to f/u with psychiatrist for his mood disorder. Botox in future Patient requests tinting for car due to glare and headaches- forms from [employer] Orders: Orders CT head/brain wo IV con Today M54.2 - Cervicalgia, R51.9 - Headache, unspecified Medications: New topiramate take one tablet daily at night for migraines. 50 mg PO BID 30 days 30 tabs 1RF migraines MDD 50mg G43.909 - Migraine, unspecified, not intractable, without status migrainosus, R51.9 - Headache, unspecified Changed From cyclobenzaprine 10 mg PO BEDTIME 30 tabs 1RF M54.2 - Cervicalgia To cyclobenzaprine 5-10mg PO as needed for cervicalgia at bedtime. 5 mg (1/2 x 10 mg) PO BEDTIME 30 days 15 tabs 1RF muscle pain MDD 5-10mg M54.2 - Cervicalgia Refilled sumatriptan succinate take 1 tab at onset of headache; if no relief may repeat 1 tab after at least 2 hrs; max = 4 tabs/24 hr orally PRN; 30 days 9 tabs 2RF migraine headache Patient Instructions: Complete Sleep Study- snoring- nose strips and mouth gaurd may be helpful. Complete [employer] Complete forms for [employer] Chronic migraines Sumatriptan PRN at onset to decrease migraines, take topiramate 50mg po daily at night for migraines, Cervicalgia take 5-10mg of cyclobenzaprine as needed, and continue PT for neck exercises. Forms [employer] car tinting fill out form Coding Level of Care Code Est Pt Level 4 (97277) Complex EM visit Add On G2211 Diagnoses Headache around the eyes R51.9 Intractable migraine without status migrainosus, unspecified migraine type G43.919 Migraine type: unspecified Status migrainosus presence: without status migrainosus Intractability: intractable Intractable chronic migraine with aura and without status migrainosus G43.E19 Status migrainosus presence: without status migrainosus Intractability: intractable Cervicalgia M54.2 Snoring R06.83 Hypersomnia G47.10 Time Spent (min) 30
== END 2024-10-08 15:45 | disposition home or self-care (01) ==
PROVIDERS: PCP Family Medicine; Visit Provider Physician Assistant Medical
DX: R51.9 Headache, unspecified (principal); G43.919 Migraine, unspecified, intractable, without status migrainosus; G43.E19 Chronic migraine with aura, intractable, without status migrainosus; M54.2 Cervicalgia; R06.83 Snoring; G47.10 Hypersomnia, unspecified
CPT/HCPCS: 99214; G2211

== ENCOUNTER → 2024-10-08 14:49 | Outpatient (BNVA) | payer MEDICARE, MEDICAID, SELFPAY | PROVIDERS: PCP Family Medicine; Visit Provider Physician Assistant Medical | DX: G43.E19 Chronic migraine with aura, intractable, without status migrainosus (principal); R51.9 Headache, unspecified; M54.2 Cervicalgia; R06.83 Snoring; G47.10 Hypersomnia, unspecified; G25.0 Essential tremor | CPT/HCPCS: 99212 ==

== ENCOUNTER 2024-10-11 12:51 | Outpatient (AMB) | payer MEDICARE, MEDICAID, SELFPAY ==
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
[2024-10-11 13:00] VITALS: BP 160/76; PULSE 72; O2SAT 97; BMI 35.9
== END 2024-10-11 13:28 | disposition home or self-care (01) ==
PROVIDERS: PCP Family Medicine; Visit Provider Nurse Practitioner Family
DX: M54.2 Cervicalgia (principal); M25.512 Pain in left shoulder; M54.6 Pain in thoracic spine; M47.812 Spondylosis without myelopathy or radiculopathy, cervical region; M62.838 Other muscle spasm
CPT/HCPCS: 99204; G2211

== ENCOUNTER → 2024-10-11 12:51 | Outpatient (BNVA) | payer MEDICARE, MEDICAID, SELFPAY | PROVIDERS: PCP Family Medicine; Visit Provider Nurse Practitioner Family | DX: M25.512 Pain in left shoulder (principal); M54.6 Pain in thoracic spine; M47.812 Spondylosis without myelopathy or radiculopathy, cervical region; M62.838 Other muscle spasm | CPT/HCPCS: 99202 ==

== ENCOUNTER 2024-10-19 11:57 | Outpatient (AMB) | payer MEDICARE, MEDICAID, SELFPAY ==
--- NOTE | 2024-10-19 12:22 | A.OFFPC_ITS ---
Vital Signs 10/19/24 12:23 Height 5 ft 8 in Weight 235 lb 4 oz BMI 35.8 BP 120/62 Blood Pressure Location Lt brachial Position Sitting Respiration 14 Pulse 69 Pulse Source Pulse Oximeter Temp 97.9 F Temp Source Oral Pulse Oximetry (%) 96 Oxygen Delivery Method Room Air Intake Visit Reasons: follow up neck pain, meds Intake Note: patient is scheduled for neck pain Sample Body Builder Required: No Allergies No Known Allergies Allergy (Verified 10/19/24 12:23) Medication List - Last Reconciled 10/19/24 by Bimal Easton MD celecoxib (Celebrex) 200 mg PO BID PRN cyclobenzaprine 5 mg (1/2 x 10 mg) PO BEDTIME 30 days MDD 5-10mg omeprazole 20 mg PO DAILY 30 days sumatriptan succinate take 1 tab at onset of headache; if no relief may repeat 1 tab after at least 2 hrs; max = 4 tabs/24 hr orally PRN; 30 days topiramate 50 mg PO BID 30 days MDD 100mg Tobacco use date assessed: 09/20/24 Dental Screening Dental Screen Date: 09/20/24 HPI follow up neck pain, meds HPI Details 53 y/o male presents to f/u neck pain, m eds. Had seen pain management 10/11/24 Aimee Wake[place]. Per Pain Management: - Continue using heating pads and topica l creams for pain relief, consider cervical support pillow. - Follow-up with X-ray imaging as schedu led for the neck and left shoulder. - Take Celebrex and muscle relaxants as discussed; report any side effects. - Consider acupuncture and massage thera py for additional pain management. - Quit smoking to improve overall health . - Maintain physical activity within tole rated levels. - Await results for further management s teps following imaging results. HPI Comments History of Present Illness Details Documentation assistance for Bimal Easton MD, was provided by Palmer Rai,? Business Banking Relationship Manager on 10/19/2024 at 12:41 PM EST. I, Dr. Easton, have read, observed, and verified documentation. ?? [facility] Medical History Cervicalgia Chronic migraine with aura Headache around the eyes Hypersomnia Snoring Cervicalgia History of hepatitis C Schizophrenia Bipolar 1 disorder Depression Anxiety Headache Acid reflux Back disorder Arthritis Family History Mother High blood pressure Father Cancer Social History Housing: Apartment Patient Tobacco Use Status: Former Tobacco user e-Cigarette/Vaping Use: Never Used service: No Current occupational status: unemployed Current occupational exposures/hazards: No Cognitive needs: No Hearing needs: No Vision needs: Yes Questionnaire Thrive Questionnaire Date Thrive assessed: 09/06/24 I am a: Patient What is your living situation today?: I choose not to answer this question Within the past 12 months, did the food you bought not last and you didn't have the money to get more?: I choose not to answer this question Within the past 12 months, did you worry whether your food would run out before you got money to buy more?: I choose not to answer this question Do you have trouble paying for medicines?: I choose not to answer this question Do you have trouble getting transportation to medical appointments?: I choose not to answer this question Do you have trouble paying your heating and electricity bill?: I choose not to answer this question Do you have trouble taking care of your child, family member or friend?: I choose not to answer this question Do you have trouble with day-to-day activities such as bathing, preparing meals, shopping, managing finances, etc.?: I choose not to answer this question Are you currently unemployed and looking for a job?: I choose not to answer this question Are you interested in more education?: I choose not to answer this question Please select the resources that you would like help with: Housing/Chcf Currently or been in a relationship where the following occur: I choose not to answer THRIVE Score: 0 ERIKA-7 AMB Questionnaire ERIKA-7 Date ERIKA - 7 assessed: 09/20/24 Source: Developed by Drs. Rigo Smith, Ceci Arechiga, Gurvinder Dawson and colleagues, with an educational agustin from [employer]. Review of Systems Const Denies chills, Denies fatigue, Denies fever(s), Denies headache(s) and Denies weakness ENT Denies dizziness and Denies headache(s) Card Denies dyspnea Resp Denies cough, Denies dyspnea, Denies wheezing and Denies other (shortness of breath) Musc Denies numbness and Denies tingling Neuro Denies dizziness, Denies headache(s), Denies numbness, Denies tingling and Denies weakness Psych Denies anxiety and Denies depression Endo Denies fatigue Aller/Immun Denies wheezing Physical exam (Primary Care) Vital Signs: Last Vital Signs Temp 97.9 F 10/19/24 12:23 Pulse 69 10/19/24 12:23 Resp 14 10/19/24 12:23 BP 120/62 10/19/24 12:23 Pulse Ox 96 10/19/24 12:23 Oxygen Delivery Method Room Air 10/19/24 12:23 BMI result Body Mass Index 35.8 Tobacco/Smoking Status: Tobacco use Status Tobacco use date assessed 09/20/24 10/19/24 12:26 Patient Tobacco Use Status Former Tobacco user 10/19/24 12:26 e-Cigarette/Vaping Use Never Used 10/19/24 12:26 Thrive Assessment: Date of Thrive Assessment Date Thrive assessed 09/06/24 10/19/24 12:26 Currently or been in a relationship where the following occur: I choose not to answer Const General: well developed; No acute distress Nutritional Appearance: well nourished Orientation/consciousness: patient oriented x3 [facility] Head: Yes normocephalic and Yes atraumatic Eyes General: appearance normal, both eyes and all related structures Pupils: Equal, round and reactive pupils present EOM: EOMs intact bilaterally Resp Effort & Inspection: normal respiratory effort Neuro General: patient oriented x3 and gait normal Cranial nerves: Yes Equal, round and reactive pupils present Psych Affect: normal affect Coding Level of Care Code Est Pt Level 3 (40653) Diagnoses Cervical spondylosis M47.812 Headache R51.9 Assessment & Plan Assessment & Plan (1) Cervical spondylosis: Code(s): M47.812 - Spondylosis without myelopathy or radiculopathy, cervical region Category: Medical Plan: Patient?saw?pain?management?and?they?have?scheduled?a?CT?scan?to?evaluate?furthe r Also?an?x-ray?of?his?lumbar?spine Is?the?advised?continuing?Celebrex?and?muscle?relaxers Also?discussed?other?modalities?such?as?acupuncture?and?massage Advised?he?follow-up?with?pain?management?recommended. Continue?NSAIDs?and?muscle?relaxers (2) Headache: Code(s): R51.9 - Headache, unspecified Category: Medical Plan: Headaches?are?improved?with?Celebrex? as?well?as?topiramate?and?sumatriptan?needed Continue?current?regimen Orders: Orders TSH reflex Free T4 Today Z00.00 - Encounter for general adult medical examination without abnormal findings Microalbumin, Random (w Creat) Today I10 - Essential (primary) hypertension, Z00.00 - Encounter for general adult medical examination without abnormal findings Comprehensive [place]. Panel Fast Today Z00.00 - Encounter for general adult medical examination without abnormal findings Lipid Panel Today Z00.00 - Encounter for general adult medical examination without abnormal findings UA and rflx microscopic Today Z00.00 - Encounter for general adult medical examination without abnormal findings
[2024-10-19 12:23] VITALS: BP 120/62; PULSE 69; RESP 14; TEMP 36.6; O2SAT 96; BMI 35.8
== END 2024-10-19 15:56 | disposition home or self-care (01) ==
LOC: HO.HMCFM 11:58
PROVIDERS: PCP Family Medicine; Visit Provider Family Medicine
DX: M47.812 Spondylosis without myelopathy or radiculopathy, cervical region (principal); R51.9 Headache, unspecified

== ENCOUNTER → 2024-10-19 11:57 | Outpatient (BNVA) | payer MEDICARE, MEDICAID, SELFPAY | PROVIDERS: PCP Family Medicine; Visit Provider Family Medicine | DX: M47.812 Spondylosis without myelopathy or radiculopathy, cervical region (principal); R51.9 Headache, unspecified | CPT/HCPCS: 99212 ==

== ENCOUNTER 2024-11-01 08:28 | Outpatient (REF) | payer MEDICARE, MEDICAID, SELFPAY ==
--- NOTE | ~2024-11-01 | XR_ITS ---
EXAMINATION: XR SHOULDER 2 OR MORE VIEWS LEFT HISTORY: M25.512 - Pain in left shoulder COMPARISON: There are no prior studies available for comparison. FINDINGS: Four views of the left shoulder are submitted. Osseous mineralization is normal. There is no fracture or dislocation. The glenohumeral and acromioclavicular joints are maintained. There is a tiny calcified granuloma in the left upper lobe. XR/XR shoulder LT min 2V IMPRESSION: Unremarkable examination of the left shoulder. Electronically signed by: Rigo Lunsford MD 11/01/2024 11:38 AM EDT
--- NOTE | ~2024-11-01 | XR_ITS ---
CLINICAL HISTORY: M54.2 - Cervicalgia 6 views cervical spine Comparison: None Findings: Normal vertebral body alignment. No acute fractures or dislocation. Multilevel disc space narrowing and endplate osteophyte formation, as well as facet hypertrophy. Prevertebral soft tissues within normal limits. IMPRESSION: No acute findings. This document has been electronically signed by: Erica Elizabeth MD on 11/02/2024 14:41:14
== END 2024-11-01 08:29 | disposition home or self-care (01) ==
LOC: HO.XRAY 08:28
PROVIDERS: PCP Family Medicine; Visit Provider Nurse Practitioner Family
DX: M54.2 Cervicalgia (principal); M25.512 Pain in left shoulder
CPT/HCPCS: 72050; 73030

== ENCOUNTER → 2024-11-01 08:36 | Outpatient (BNV) | payer MEDICARE, MEDICAID, SELFPAY | PROVIDERS: PCP Family Medicine; Visit Provider Radiology Diagnostic Radiology | DX: M25.512 Pain in left shoulder (principal) | CPT/HCPCS: 72050; 73030 ==

== ENCOUNTER 2024-11-01 12:56 | Outpatient (RCR) | payer MEDICARE, MEDICAID, SELFPAY ==
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
== END 2024-11-29 11:29 | disposition home or self-care (01) ==
LOC: HO.PTS 12:56
PROVIDERS: PCP Family Medicine; Visit Provider Psychiatry & Neurology Neurology
DX: M54.2 Cervicalgia (principal)
CPT/HCPCS: 97110; 97140; 97162

== ENCOUNTER 2024-11-26 14:28 | Outpatient (REF) | payer MEDICARE, MEDICAID, SELFPAY ==
--- NOTE | ~2024-11-26 | CT_ITS ---
CLINICAL HISTORY: R51.9 - Headache, unspecified CT head without contrast Comparison: None Findings: No acute hemorrhage. No extra-axial fluid collection. No hydrocephalus, mass-effect or herniation. Jackson-white differentiation is maintained. White matter is within normal limits for age. No acute orbital pathology. No acute soft tissue abnormality. No acute fracture. Remote right lamina papyracea fracture. The visualized paranasal sinuses are predominantly clear. The mastoid air cells are clear. Impression: No acute findings. This document has been electronically signed by: Malka Galeana MD on 11/29/2024 17:30:31
== END 2024-11-26 14:29 | disposition home or self-care (01) ==
LOC: HO.CT 14:28
PROVIDERS: PCP Family Medicine; Visit Provider Physician Assistant Medical
DX: R51.9 Headache, unspecified (principal); M54.2 Cervicalgia
CPT/HCPCS: 70450

== ENCOUNTER → 2024-11-26 14:30 | Outpatient (BNV) | payer MEDICARE, MEDICAID, SELFPAY | PROVIDERS: PCP Family Medicine; Visit Provider Radiology Diagnostic Radiology | DX: R51.9 Headache, unspecified (principal) | CPT/HCPCS: 70450 ==

== ENCOUNTER 2024-12-21 10:57 | Outpatient (REF) | payer MEDICARE, MEDICAID, SELFPAY ==
[2024-12-21 14:23] LABS: MANUAL DIFF FLAG NO
[2024-12-21 14:25] LABS: Basophils Percent Auto 0.7 % (0-2); Eosinophils Absolute Auto 0.1 X10*3/uL (0.0-0.4); Eosinophils Percent Auto 0.8 % (0-4); Hematocrit 47.5 % (42.0-52.0); Hemoglobin 15.2 g/dl (14.0-18.0); Imm Gran Abs Auto 0.01 X10*3/uL (0.00-0.03); Imm Gran Pct Auto 0.2 % (0.0-0.4); Lymphocytes Percent Auto 17.2 % (20-40); Mean Corpuscular Volume 87.5 fL (80.0-98.0); Monocytes Absolute Auto 0.2 X10*3/uL (0.1-1.2); Monocytes Percent Auto 3.2 % (2-11); Neutrophils Absolute Auto 4.7 x10*3/uL (2.0-8.3); Neutrophils Percent Auto 77.9 % (45-73); Platelet Count 177 X10*3/uL (160-400); Red Blood Count 5.43 X10*6/uL (4.60-5.80); Red Cell Distribution Width 14.6 % (11.0-16.0)
[2024-12-21 14:48] LABS: Alanine Aminotransferase 17 U/L (0-40); Albumin Level 4.3 g/dL (3.5-5.0); Alkaline Phosphatase 67 U/L (39-117); Anion Gap 11 (12-20); Aspartate Amino Transferase 26 U/L (5-37); Bilirubin Total 0.4 mg/dL (0.0-1.0); Blood Urea Nitrogen 10 mg/dL (9-16); Calcium 9.1 mg/dL (8.4-10.2); Carbon Dioxide 23 mmol/L (22-29); Chloride 109 mmol/L (96-108); Cholesterol 176 mg/dL (<200); Estimated Glomerular Filt Rate > 60; Glucose Fasting 132 mg/dL (60-99); HDL Cholesterol 29 mg/dL (>40); LDL Cholesterol Calculated 107 mg/dL (<100); Potassium 3.5 mmol/L (3.3-5.1); Sodium 139 mmol/L (135-145); Total Protein 7.2 g/dL (6.5-8.0); Triglycerides 200 mg/dL (<150)
[2024-12-21 14:56] LABS: Prostate Specific Antigen Scr 0.92 ng/mL (<0.05-4.0)
[2024-12-21 15:21] LABS: TSH reflex Free T4 1.27 uIU/mL (0.32-4.0)
== END 2024-12-21 10:58 | disposition home or self-care (01) ==
LOC: HO.WFDLDS 10:57
PROVIDERS: Visit Provider Family Medicine
DX: Z00.00 Encounter for general adult medical examination without abnormal findings (principal); Z12.5 Encounter for screening for malignant neoplasm of prostate
CPT/HCPCS: 36415; 80053; 80061; 84153; 84443; 85025

== ENCOUNTER 2025-01-11 14:57 | Outpatient (AMB) | payer MEDICARE, MEDICAID, SELFPAY ==
--- NOTE | 2025-01-11 15:01 | A.OFFVIS_ITS ---
Vital Signs 01/11/25 15:02 Height 5 ft 8 in Weight 231 lb 6 oz BMI 35.2 BP 122/76 Blood Pressure Location Lt brachial Position Sitting Pulse 70 Pulse Source Pulse Oximeter Pulse Oximetry (%) 97 Oxygen Delivery Method Room Air Intake Visit Reasons: follow up Migraine Intake Note: Patient presents follow up Migraine. CT in chart. Patient states meds working and getting about 3 migraines monthly from about 20 per month. Allergies No Known Allergies Allergy (Verified 01/11/25 15:04) HPI Comments Details: 54 y/o male comes for further management of migraines. HST 10/2024 REYNALDO AHI is 20.7 and oxygen Ty was84% with snoring. He is having migraines 3x a week around in the am or will have them during traffic hours, 6-7 severity and improved on medications. The headaches were pulsating pounding bitemporal pain L>R, radiating from occipital to temporal, with eye pressure , photophobia, phonophobia. Denies nausea, vomiting, visual aura, with some dizziness etc. The pain can lasts 2 hours but migraines abort with Sumatriptan 50mg PO prn. He drives with shades on and wants to know if he can tint the windows of his car. 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 He has spasms of the neck muscles in the levator, splenius and trapezius when turning his head. Torticollis. He was unable to complete his MRI, due to claustrophobia and unable to tolerate cpap mask, we discussed trying various masks and he will give it a second try again. His mood is better now, he is now seeing a psychologist. He smokes 10 cigarettes daily, no edibles and MJ, and he does not drink alcohol. [facility] Medical History Cervicalgia Chronic migraine with aura Headache around the eyes Hypersomnia Snoring Cervicalgia History of hepatitis C Schizophrenia Bipolar 1 disorder Depression Anxiety Headache Acid reflux Back disorder Arthritis Family History Mother High blood pressure Father Cancer Social History (Reviewed 01/11/25 @ 15:05 by YE [place] Housing: Apartment Patient Tobacco Use Status: Former Tobacco user e-Cigarette/Vaping Use: Never Used service: No Current occupational status: unemployed Current occupational exposures/hazards: No Cognitive needs: No Hearing needs: No Vision needs: Yes Physical Exam Vital Signs: Last Vital Signs Pulse 70 01/11/25 15:02 BP 122/76 01/11/25 15:02 Pulse Ox 97 01/11/25 15:02 Oxygen Delivery Method Room Air 01/11/25 15:02 BMI result Body Mass Index 35.2 He is legally blind in the left eye. Const General: cooperative and comfortable Nutritional Appearance: obese Orientation/consciousness: patient oriented x3 Eyes Pupils: Equal, round and reactive pupils present Resp Effort & Inspection: normal respiratory effort and able to speak in complete sentences Neuro Other: severe restricted range of motion of neck with tightness and tenderness in lateral and posterior cervical muscles, and scm. General: patient oriented x3, gait normal, tone normal and moves all extremities Cranial nerves: Yes Equal, round and reactive pupils present and Yes Midline tongue present Cognition (Neuro): normal cognition Gait exam (Neuro): Normal gait present Motor exam (neuro): 5/5 motor strength present throughout and Normal motor muscle tone present throughout Deep tendon reflexes (DTR's): Right triceps reflex intensity grade: 1+, Left triceps reflex intensity grade: 1+, Rt Biceps (C5, C6): 1+, Left biceps reflex intensity grade: 1+, Right brachioradialis reflex intensity grade: 1+, Left brachioradialis reflex intensity grade: 1+, Right patellar reflex intensity grade: 1+ and Left patellar reflex intensity grade: 1+ Coordination: [id number] test normal Psych Appearance: well kempt Attitude: cooperative Results Reviewed Results Reviewed: HST 10/2024 AHI is 21/hr and Oxygen nadirs to 84%. Assessment & Plan Assessment & Plan (1) REYNALDO (obstructive sleep apnea): Comment: He is going to try to use cpap again. Code(s): G47.33 - Obstructive sleep apnea (adult) (pediatric) Category: Medical (2) Spasmodic torticollis: Comment: He is interested in botox Code(s): G24.3 - Spasmodic torticollis Category: Medical (3) Chronic migraine with aura: Comment: likley triggered by neck tightness Code(s): G43.E09 - Chronic migraine with aura, not intractable, without status migrainosus Category: Medical Qualifiers: Intractability: intractable Status migrainosus presence: without status migrainosus Qualified Code(s): G43.E19 - Chronic migraine with aura, intractable, without status migrainosus Plan REYNALDO start cpap use HST 10/2024 REYNALDO AHI is 20.7 and oxygen Ty was84% with snoring. Continue sumatriptan 50mg BID as needed with onset of migraines, take one tablet and if migraine does not abort you may take one additional tablet with in 2 hours. Not to exceed 100mg in a 24 hour period. Cervicalgia continue with cyclobenzaprine 5mg as needed at bedtime Start Topiramate 50mg PO at night daily for chronic migraines. Continue PT for neck - myofascial release MRI not able to tolerate due to claustrophobic will do a CT scan of the head. f/u with pscyhiatrist for mood disorders Botox in future Patient requests tinting for car due to glare and headaches- forms from [employer] Orders: Orders CT head/brain wo IV con 01/11/25 M54.2 - Cervicalgia, M62.838 - Other muscle spasm Medications: New baclofen take one tablet daily at night for spasms of the neck. 5 mg PO BEDTIME 30 tabs 0RF spasmodic torticollis 1 month MDD 5mg G24.3 - Spasmodic torticollis, M62.838 - Other muscle spasm Patient Instructions: Sleep Hygiene provided: set a scheduled bedtime and wake time to help regulate the circadian rhythm and balance the release of pituitary hormones. Sleep in a dark room, temperatures below 68 degrees, and no devices n bed. Limit caffeinated products 6 hours prior to bed, and limit fluids 2-4 hours prior to bed. Gentle night yoga, diffusing essential oils, and playing soft music can be relaxing. Coding Level of Care Code Est Pt Level 4 (92064) Complex EM visit Add On G2211 Diagnoses REYNALDO (obstructive sleep apnea) G47.33 Spasmodic torticollis G24.3 Intractable chronic migraine with aura and without status migrainosus G43.E19 Intractability: intractable Status migrainosus presence: without status migrainosus Time Spent (min) 30 Comment improving
[2025-01-11 15:02] VITALS: BP 122/76; PULSE 70; O2SAT 97; BMI 35.2
== END 2025-01-11 15:57 | disposition home or self-care (01) ==
LOC: HO.HSMS 14:58
PROVIDERS: PCP Family Medicine; Visit Provider Physician Assistant Medical
DX: G47.33 Obstructive sleep apnea (adult) (pediatric) (principal); G24.3 Spasmodic torticollis; G43.E19 Chronic migraine with aura, intractable, without status migrainosus
CPT/HCPCS: 99214; G2211

== ENCOUNTER → 2025-01-11 14:57 | Outpatient (BNVA) | payer MEDICARE, MEDICAID, SELFPAY | PROVIDERS: PCP Family Medicine; Visit Provider Physician Assistant Medical | DX: M54.2 Cervicalgia (principal); R06.83 Snoring; G47.10 Hypersomnia, unspecified; G25.0 Essential tremor; G43.E19 Chronic migraine with aura, intractable, without status migrainosus | CPT/HCPCS: 99212 ==

== ENCOUNTER 2025-04-14 14:12 | Outpatient (AMB) | payer MEDICARE, MEDICAID, SELFPAY ==
--- NOTE | 2025-04-14 14:44 | MHC.OFFVIS ---
Vital Signs 04/14/25 14:45 Height 5 ft 8 in Weight 221 lb 8 oz BMI 33.7 BP 124/86 Blood Pressure Location Lt brachial Position Sitting Pulse 74 Pulse Source Pulse Oximeter Pulse Oximetry (%) 96 Oxygen Delivery Method Room Air Intake Visit Reasons: 3m follow up Intake Note: Patient presents REYNALDO/Migraine medication. CT in chart. Still pain in neck goes down into his tailbone. Takes cyclobenaprine and doesnt help. Patient states migraines are under control.(4-5per month). Accompanied by: Self / Same As Patient Allergies No Known Allergies Allergy (Verified 04/14/25 14:48) HPI Comments Details: 54 y/o male comes for further management of migraines. HST 10/2024 REYNALDO AHI is 20.7 and oxygen Ty was 84% with snoring. Reviewed HST with pt today and implications of sleep apnea. He has migraines 3x a week in the mornings or will have them during traffic hours, 6-02/10 in severity and improve with medications. Topiramate 50mg po BID. Sumatriptan, and cyclobenzaprine 5mg po qhs. The headaches were pulsating, pounding, bitemporal pain L>R, radiating from occipital to temporal, with dull eye pressure. He has photophobia, phonophobia, dizziness, but denies nausea and vomiting. This can last for 2 hours, however migraines do subside with Sumatriptan 50mg PO prn. He drives with shades on and wants a darker tint on his car. 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 He has spasms of the neck muscles in the splenius, trapezius, and levators when turning his head along with Torticollis. He was unable to have an MRI, due to claustrophobia. He is unable to tolerate cpap mask, we discussed trying various masks, putting them on in front of the tv at night and wearing the mask for 30 min daily so he can get acclimated to the use of a mask on his face and he says he will try again. His mood is better now, he is now seeing a therapist regularly. He smokes 10 cigarettes daily, no edibles, no MJ, and he does not drink alcohol. [facility] Medical History Cervicalgia Chronic migraine with aura Headache around the eyes Hypersomnia Snoring Cervicalgia History of hepatitis C Schizophrenia Bipolar 1 disorder Depression Anxiety Headache Acid reflux Back disorder Arthritis Family History Mother High blood pressure Father Cancer Social History Housing: Apartment Patient Tobacco Use Status: Former Tobacco user e-Cigarette/Vaping Use: Never Used service: No Current occupational status: unemployed Current occupational exposures/hazards: No Cognitive needs: No Hearing needs: No Vision needs: Yes Physical Exam Vital Signs: Last Vital Signs Pulse 74 04/14/25 14:45 BP 124/86 04/14/25 14:45 Pulse Ox 96 04/14/25 14:45 Oxygen Delivery Method Room Air 04/14/25 14:45 BMI result Body Mass Index 33.7 He is legally blind in the left eye. Const General: cooperative and comfortable Nutritional Appearance: obese Orientation/consciousness: patient oriented x3 Eyes Pupils: Equal, round and reactive pupils present Resp Effort & Inspection: normal respiratory effort and able to speak in complete sentences Neuro Other: severe restricted range of motion of neck with tightness and tenderness in lateral and posterior cervical muscles, and scm. General: patient oriented x3, gait normal, tone normal and moves all extremities Cranial nerves: Yes Equal, round and reactive pupils present and Yes Midline tongue present Cognition (Neuro): normal cognition Gait exam (Neuro): Normal gait present Motor exam (neuro): 5/5 motor strength present throughout and Normal motor muscle tone present throughout Psych Appearance: well kempt Attitude: cooperative Results Reviewed Results Reviewed: HST 10/2024 REYNALDO AHI is 20.7 and oxygen Ty was 84% with snoring. Reviewed HST with pt today and implications of sleep apnea. Assessment & Plan Assessment & Plan (1) Anemia: Code(s): D64.9 - Anemia, unspecified Category: Medical Qualifiers: Anemia type: iron deficiency Iron deficiency anemia type: unspecified iron deficiency Qualified Code(s): D50.9 - Iron deficiency anemia, unspecified (2) REYNALDO (obstructive sleep apnea): Comment: He is going to try to use cpap again. Code(s): G47.33 - Obstructive sleep apnea (adult) (pediatric) Category: Medical (3) Spasmodic torticollis: Comment: He is interested in botox Code(s): G24.3 - Spasmodic torticollis Category: Medical (4) Chronic migraine with aura: Comment: paola triggered by neck tightness Code(s): G43.E09 - Chronic migraine with aura, not intractable, without status migrainosus Category: Medical Qualifiers: Status migrainosus presence: without status migrainosus Intractability: intractable Qualified Code(s): G43.E19 - Chronic migraine with aura, intractable, without status migrainosus Plan Moderate REYNALDO reviewed HST again with pt. he is interested in starting cpap once again will send him fresh order of supplies. Continue sumatriptan 50mg BID as needed at the onset of migraines, take one tablet at the onset of migraine, if migraine does not abort, you may take one additional tablet with in 2 hours. Not to exceed 200mg in a 24 hour period. Cervicalgia continue with cyclobenzaprine 5mg as needed at bedtime. Chronic Migraines start Topiramate 50mg PO qpm. Labs to complete. CT scan reviewed with pt. today. Declines PT today. Will submit for open MRI with anxiolytic at [facility] not able to tolerate regular MRI claustrophobic. Botox in future? Tinting forms from [facility] completed. f/u in 3 months. Orders: Orders Vitamin D 25-OH Total Today D64.9 - Anemia, unspecified Vitamin B6 Today D64.9 - Anemia, unspecified Vitamin B12 and Folate Today D64.9 - Anemia, unspecified Vitamin B1 Today D64.9 - Anemia, unspecified Methylmalonic Acid Today D64.9 - Anemia, unspecified, G47.9 - Sleep disorder, unspecified, R53.83 - Other fatigue Magnesium Today D64.9 - Anemia, unspecified Homocysteine Today D64.9 - Anemia, unspecified, G47.9 - Sleep disorder, unspecified, R53.83 - Other fatigue Ferritin Today D64.9 - Anemia, unspecified Complete Blood Count no Diff Today D64.9 - Anemia, unspecified TSH reflex Free T4 Today D64.9 - Anemia, unspecified Hemoglobin A1c Today D64.9 - Anemia, unspecified Comprehensive Met. Panel Today D64.9 - Anemia, unspecified Medications: Refilled sumatriptan succinate take 1 tab at onset of headache; if no relief may repeat 1 tab after at least 2 hrs; max = 4 tabs/24 hr orally PRN; 9 tabs 2RF migraine headache 30 days cyclobenzaprine 5-10mg PO as needed for cervicalgia at bedtime. 5 mg (1/2 x 10 mg) PO BEDTIME 15 tabs 1RF muscle pain 30 days MDD 5-10mg M54.2 - Cervicalgia topiramate 50 mg PO BID 30 tabs 1RF for migraine G43.909 - Migraine, unspecified, not intractable, without status migrainosus, R51.9 - Headache, unspecified Patient Instructions: Sleep Hygiene provided: set a scheduled bedtime and wake time to help regulate the circadian rhythm and balance the release of pituitary hormones. Sleep in a dark room, temperatures below 68 degrees, and no devices n bed. Limit caffeinated products 6 hours prior to bed, and limit fluids 2-4 hours prior to bed. Gentle night yoga, diffusing essential oils, and playing soft music can be relaxing. Coding Level of Care Code Est Pt Level 4 (10936) Diagnoses Iron deficiency anemia, unspecified iron deficiency anemia type D50.9 Anemia type: iron deficiency Iron deficiency anemia type: unspecified iron deficiency REYNALDO (obstructive sleep apnea) G47.33 Spasmodic torticollis G24.3 Intractable chronic migraine with aura and without status migrainosus G43.E19 Status migrainosus presence: without status migrainosus Intractability: intractable
[2025-04-14 14:45] VITALS: BP 124/86; PULSE 74; O2SAT 96; BMI 33.7
== END 2025-04-14 15:44 | disposition home or self-care (01) ==
LOC: HO.HSMS 14:13
PROVIDERS: PCP Family Medicine; Visit Provider Physician Assistant Medical
DX: D50.9 Iron deficiency anemia, unspecified (principal); G47.33 Obstructive sleep apnea (adult) (pediatric); G24.3 Spasmodic torticollis; G43.E19 Chronic migraine with aura, intractable, without status migrainosus
CPT/HCPCS: 99214

== ENCOUNTER → 2025-04-14 14:12 | Outpatient (BNVA) | payer MEDICARE, MEDICAID, SELFPAY | PROVIDERS: PCP Family Medicine; Visit Provider Physician Assistant Medical | DX: G43.E19 Chronic migraine with aura, intractable, without status migrainosus (principal); G47.33 Obstructive sleep apnea (adult) (pediatric); H54.62 Unqualified visual loss, left eye, normal vision right eye; G24.3 Spasmodic torticollis; M54.2 Cervicalgia; M62.838 Other muscle spasm; R06.83 Snoring; G25.0 Essential tremor; D50.9 Iron deficiency anemia, unspecified | CPT/HCPCS: 99212 ==